=== PATIENT | male | born 1985 | race African-American/Black ===

== ENCOUNTER 2018-05-11 14:23 | Emergency (ER) | payer OTHER ==
[~2018-05-11] VITALS: Ht 190.5 cm; Wt 138.3 kg
[2018-05-11 14:31] VITALS: BP 152/92
[2018-05-11] MEDS ORDERED: LIDOCAINE 1% PF 2 ML VIAL. INJ ONE (15:30)
--- NOTE | 2018-05-11 15:44 | RAD ---
HAND RIGHT 3V History: pt states fell on 5th digit today, no able to fully extend right hand's digits.. Comparison: None are available 3 views of the right hand demonstrate a fracture of the distal phalanx of the fifth finger. There is anterior angulation at the fracture site as well as posterior displacement of the distal fragment. No evidence of dislocation. Note that evaluation of the phalanges otherwise limited due to flexion of the fingers. IMPRESSION: Displaced fracture of the distal phalanx of the fifth finger. Electronically signed by: Jj Quintero MD (05/11/2018 3:39 PM) [facility]
--- NOTE | 2018-05-11 16:13 | RAD ---
Examination: 2 views of the right hand HISTORY: History of postreduction. COMPARISON: Same day exam Findings/ impression: There is displaced fracture of the distal phalanx of the fifth digit with the distal fracture fragment displaced dorsal in relation to the proximal fragment. Electronically signed by: Laureano Kirk MD (05/11/2018 4:08 PM) [facility]
[2018-05-11] MEDS ORDERED: HYDR-3164 PO (17:23)
--- NOTE | 2018-05-11 17:24 | PHYS DOC ---
Past Medical History Past Medical History: No Pertinent History Alcohol Use: None Drug Use: Marijuana Social History Narrative: LAST USE YESTERDAY Adult General Chief Complaint Chief Complaint: FINGER INJURY HPI HPI Patient is a 32 year old [f__sex] who presents with [] Review of Systems Review of Systems Constitutional: Denies fever or chills [] Eyes: Denies change in visual acuity, redness, or eye pain [] HENT: Denies nasal congestion or sore throat [] Respiratory: Denies cough or shortness of breath [] Cardiovascular: No additional information not addressed in HPI [] GI: Denies abdominal pain, nausea, vomiting, bloody stools or diarrhea [] : Denies dysuria or hematuria [] Musculoskeletal: Denies back pain or joint pain [] Integument: Denies rash or skin lesions [] Neurologic: Denies headache, focal weakness or sensory changes [] Endocrine: Denies polyuria or polydipsia [] All other systems were reviewed and found to be within normal limits, except as documented in this note. Current Medications Current Medications Current Medications Medications (Trade) Dose Ordered Sig/Sarah Start Time Stop Time Status Last Admin Dose Admin Lidocaine HCl (Xylocaine-Mpf 1% 2ml Vial) 2 ml 1X ONCE 05/11/18 15:30 05/11/18 15:33 DC 05/11/18 15:47 2 ML Allergies Allergies Allergies Coded Allergies Type Severity Reaction Last Updated Verified No Known Drug Allergies 05/11/18 No Physical Exam Physical Exam Constitutional: Well developed, well nourished, no acute distress, non-toxic appearance. [] HENT: Normocephalic, atraumatic, bilateral external ears normal, oropharynx moist, no oral exudates, nose normal. [] Eyes: PERRLA, EOMI, conjunctiva normal, no discharge. [] Neck: Normal range of motion, no tenderness, supple, no stridor. [] Cardiovascular:Heart rate regular rhythm, no murmur [] Lungs & Thorax: Bilateral breath sounds clear to auscultation [] Abdomen: Bowel sounds normal, soft, no tenderness, no masses, no pulsatile masses. [] Skin: Warm, dry, no erythema, no rash. [] Back: No tenderness, no CVA tenderness. [] Extremities: No tenderness, no cyanosis, no clubbing, ROM intact, no edema. [] Neurologic: Alert and oriented X 3, normal motor function, normal sensory function, no focal deficits noted. [] Psychologic: Affect normal, judgement normal, mood normal. [] Current Patient Data Vital Signs Vital Signs Date Time Temp Pulse Resp B/P (MAP) Pulse Ox O2 Delivery O2 Flow Rate FiO2 05/11/18 14:31 98.5 75 16 152/92 (112) 97 Room Air 98.5 EKG EKG [] Radiology/Procedures Radiology/Procedures [] Course & Med Decision Making Course & Med Decision Making Pertinent Labs and Imaging studies reviewed. (See chart for details) [] Dragon Disclaimer Dragon Disclaimer This electronic medical record was generated, in whole or in part, using a voice recognition dictation system. Departure Departure Impression: Primary Impression: Phalanx, distal fracture of finger Disposition: HOME, SELF-CARE Condition: STABLE Referrals: [facility] (PCP) Patient Instructions: Finger Fracture Additional Instructions: Please call Dr. Lazcano's office at [phone] for an appointment for further evaluation and treatment of this fracture. The medication as directed. Do not drive or operate heavy machinery while taking this medication. Scripts Hydrocodone/Apap 5-325 (NORCO 5-325 TABLET) 1 Each Tablet 1 TAB PO PRN Q6HRS PRN for PAIN, #14 TAB 0 Refills Prov: EMMANUEL MARCELO APRN 05/11/18 EMMANUEL MARCELO APRN May 11, 2018 17:24
== END 2018-05-11 17:30 | disposition home or self-care (01) ==
LOC: ER 14:23
DX: S62.636A Displaced fracture of distal phalanx of right little finger, initial encounter for closed fracture (principal); W18.39XA Other fall on same level, initial encounter; Y93.89 Activity, other specified; Y92.89 Other specified places as the place of occurrence of the external cause; Y99.8 Other external cause status
CPT/HCPCS: 29130; 73120; 73130; 99283-25